=== PATIENT | male | born 1955 | race Caucasian/White ===

== ENCOUNTER → 2017-08-21 | Outpatient (CLI) | payer MEDICARE ==
--- NOTE | 2017-08-21 12:22 | RADIOLOGY REPORT PS360 ---
CHEST(2 VIEWS-NOT PORTABLE) HISTORY: DYSPNEA ON EXCERTION ORDERING PHYSICIAN: Kashif Bruno MD PATIENT AGE: 62 years COMPARISON: None available FINDINGS: Low lung volumes. Vascular crowding is present in the lung bases. No evidence of CHF. Increased markings are present in the right lung base may be due to an area of atelectasis or infiltrate. There are degenerative changes in the thoracic spine. IMPRESSION: Poor inspiration with low lung volumes with atelectasis or infiltrate in right lung base
== END ==
LOC: RAD 11:32
DX: R06.09 Other forms of dyspnea (principal)